=== PATIENT | female | born 1940 | race American Indian/Alaskan Native ===

== ENCOUNTER 2019-06-18 11:34 | Observation (INO) | payer MEDICARE ==
[2019-06-18 12:38] LABS: Basophils % (Auto) 0.9 % (0.0-1.8); Eosinophils # (Auto) 0.1 K/mm3 (0.0-0.4); Eosinophils % (Auto) 2.7 % (0.0-4.3); Hematocrit 41.4 % (30.3-42.9); Hemoglobin 13.5 gm/dl (10.1-14.3); Lymphocytes # (Auto) 1.3 K/mm3 (1.2-5.4); Lymphocytes % (Auto) 23.7 % (13.4-35.0); Mean Corpuscular HGB Conc 33 % (30-34); Mean Corpuscular Volume 87 fl (79-97); Monocytes # (Auto) 0.5 K/mm3 (0.0-0.8); Monocytes % (Auto) 10.2 % (0.0-7.3); Platelet Count 237 K/mm3 (140-440); Red Blood Count 4.74 M/mm3 (3.65-5.03); Red Cell Distribution Width 12.5 % (13.2-15.2)
--- NOTE | 2019-06-18 13:09 | Emergency Department Report ---
ED General Adult HPI - General Chief complaint: Syncope Stated complaint: SYNCOPE Time Seen by Provider: 06/18/19 13:05 Source: patient, EMS Mode of arrival: Stretcher Limitations: Altered Mental Status - History of Present Illness Initial comments: This is a 78-year-old female who does not recall at least 2 syncopal episodes as per the daughter's account to the nurse. The nurse tells me that the patient was observed by her daughter to pass out briefly a few times while they were in the car. The daughter is not here at the current time and no further information is available. The patient remembers being weak and sweaty but otherwise feels like she is back to her baseline. She states that she's had a cough lately and felt like she had a cold but no shortness of breath. She denies any recent travel any leg pain or swelling. She's had no chest pain no abdominal pain no nausea vomiting or diarrhea. -: minutes(s) Associated Symptoms: denies other symptoms, cough (occasional felt like she had a cold) - Related Data Home Medications Medication Instructions Recorded Confirmed Last Taken Aspirin [Aspirin BABY CHEW TAB] 81 mg PO QDAY 06/18/19 06/18/19 06/17/19 Carvedilol [Coreg] 12.5 mg PO BID 06/18/19 06/18/19 06/17/19 Simvastatin 40 mg PO QHS 06/18/19 06/18/19 06/17/19 Allergies Allergy/AdvReac Type Severity Reaction Status Date / Time No Known Allergies Allergy Unverified 06/18/19 12:15 ED Review of Systems ROS: Stated complaint: SYNCOPE Other details as noted in HPI Constitutional: denies: chills, fever Eyes: denies: eye pain, eye discharge, vision change ENT: denies: ear pain, throat pain Respiratory: cough (not currently, recent cold symptoms). denies: shortness of breath, wheezing Cardiovascular: denies: chest pain, palpitations Endocrine: no symptoms reported Gastrointestinal: denies: abdominal pain, nausea, diarrhea Genitourinary: denies: urgency, dysuria, discharge Musculoskeletal: denies: back pain, joint swelling, arthralgia Skin: denies: rash, lesions Neurological: denies: headache, weakness, paresthesias Psychiatric: denies: anxiety, depression Hematological/Lymphatic: denies: easy bleeding, easy bruising ED Past Medical Hx - Past Medical History Previous Medical History?: Yes Hx Hypertension: Yes Hx Heart Attack/AMI: Yes - Surgical History Past Surgical History?: Yes Additional Surgical History: heart stents - Social History Smoking Status: Former Smoker Substance Use Type: None - Medications Home Medications: Home Medications Medication Instructions Recorded Confirmed Last Taken Type Aspirin [Aspirin BABY CHEW TAB] 81 mg PO QDAY 06/18/19 06/18/19 06/17/19 History Carvedilol [Coreg] 12.5 mg PO BID 06/18/19 06/18/19 06/17/19 History Simvastatin 40 mg PO QHS 06/18/19 06/18/19 06/17/19 History ED Physical Exam - General Limitations: No Limitations General appearance: alert, in no apparent distress - Head Head exam: Present: atraumatic, normocephalic - Eye Eye exam: Present: normal appearance. Absent: scleral icterus - ENT ENT exam: Present: mucous membranes moist - Neck Neck exam: Present: normal inspection. Absent: tenderness, meningismus - Respiratory Respiratory exam: Present: normal lung sounds bilaterally. Absent: respiratory distress - Cardiovascular Cardiovascular Exam: Present: regular rate, normal rhythm. Absent: systolic murmur, diastolic murmur, rubs, gallop - GI/Abdominal GI/Abdominal exam: Present: soft, normal bowel sounds. Absent: distended, tenderness, guarding, rebound, rigid - Extremities Exam Extremities exam: Present: normal inspection. Absent: normal capillary refill, pedal edema, joint swelling, calf tenderness - Back Exam Back exam: Present: normal inspection - Neurological Exam Neurological exam: Present: alert, oriented X3, CN II-XII intact. Absent: motor sensory deficit - Psychiatric Psychiatric exam: Present: normal affect, normal mood - Skin Skin exam: Present: warm, dry, intact, normal color. Absent: rash ED Course Vital Signs 06/18/19 06/18/19 12:03 13:27 Temperature 97.8 F Pulse Rate 65 69 Respiratory 17 16 Rate Blood Pressure 148/65 Blood Pressure 120/57 [Left] O2 Sat by Pulse 97 96 Oximetry - Reevaluation(s) Reevaluation #1: Patient resting comfortably. I will add a CT to her workup of her head. She has an NIHSS of 0. Stroke is not suspected. 06/18/19 17:00 ED Medical Decision Making - Lab Data Result diagrams: 06/18/19 12:24 06/18/19 12:24 Laboratory Results - last 24 hr 06/18/19 06/18/19 11:54 12:24 WBC 5.4 RBC 4.74 Hgb 13.5 Hct 41.4 MCV 87 MCH 28 MCHC 33 RDW 12.5 L Plt Count 237 Lymph % (Auto) 23.7 [place] % (Auto) 10.2 H Eos % (Auto) 2.7 Baso % (Auto) 0.9 Lymph # 1.3 [place] # 0.5 Eos # 0.1 Baso # 0.0 Seg Neutrophils % 62.5 Seg Neutrophils # 3.4 POC Glucose 136 H Laboratory Results - last 24 hr 06/18/19 06/18/19 06/18/19 11:54 12:24 12:24 WBC 5.4 RBC 4.74 Hgb 13.5 Hct 41.4 MCV 87 MCH 28 MCHC 33 RDW 12.5 L Plt Count 237 Lymph % (Auto) 23.7 [place] % (Auto) 10.2 H Eos % (Auto) 2.7 Baso % (Auto) 0.9 Lymph # 1.3 [place] # 0.5 Eos # 0.1 Baso # 0.0 Seg Neutrophils % 62.5 Seg Neutrophils # 3.4 Sodium 141 Potassium 4.8 Chloride 103.5 Carbon Dioxide 25 Anion Gap 17 BUN 11 Creatinine 0.8 Estimated GFR > 60 BUN/Creatinine Ratio 14 Glucose 133 H POC Glucose 136 H Calcium 9.2 Total Bilirubin 0.60 AST 21 ALT 16 Alkaline Phosphatase 53 Total Creatine Kinase 44 CK-MB (CK-2) 1.6 CK-MB (CK-2) Rel Index 3.6 Troponin T < 0.010 Total Protein 7.0 Albumin 3.8 L Albumin/Globulin Ratio 1.2 Laboratory Results - last 24 hr 06/18/19 06/18/19 06/18/19 11:54 12:24 12:24 WBC 5.4 RBC 4.74 Hgb 13.5 Hct 41.4 MCV 87 MCH 28 MCHC 33 RDW 12.5 L Plt Count 237 Lymph % (Auto) 23.7 [place] % (Auto) 10.2 H Eos % (Auto) 2.7 Baso % (Auto) 0.9 Lymph # 1.3 [place] # 0.5 Eos # 0.1 Baso # 0.0 Seg Neutrophils % 62.5 Seg Neutrophils # 3.4 Sodium 141 Potassium 4.8 Chloride 103.5 Carbon Dioxide 25 Anion Gap 17 BUN 11 Creatinine 0.8 Estimated GFR > 60 BUN/Creatinine Ratio 14 Glucose 133 H POC Glucose 136 H Calcium 9.2 Total Bilirubin 0.60 AST 21 ALT 16 Alkaline Phosphatase 53 Total Creatine Kinase 44 CK-MB (CK-2) 1.6 CK-MB (CK-2) Rel Index 3.6 Troponin T < 0.010 Total Protein 7.0 Albumin 3.8 L Albumin/Globulin Ratio 1.2 - EKG Data -: EKG Interpreted by Wy EKG shows normal: sinus rhythm Rate: normal - EKG Data Interpretation: other (biatrial abnormality) - Radiology Data Radiology results: report reviewed (chest x-ray no acute process) Critical care attestation.: If time is entered above; I have spent that time in minutes in the direct care of this critically ill patient, excluding procedure time. ED Disposition Clinical Impression: Syncope Qualifiers: Syncope type: unspecified Qualified Code(s): R55 - Syncope and collapse Disposition: OP ADMIT IP TO THIS HOSP Is pt being admited?: Yes Does the pt Need Aspirin: Yes Condition: Stable Instructions: Syncope (ED) Time of Disposition: 17:02
--- NOTE | 2019-06-18 13:19 | XRay Report ---
CHEST 1 VIEW 12:46 PM INDICATION / CLINICAL INFORMATION: Syncope. COMPARISON: None available. FINDINGS: SUPPORT DEVICES: None. HEART / MEDIASTINUM: The heart size is borderline with a left ventricular configuration. There is mil d calcification in the aortic arch without aneurysm. Pulmonary vasculature is normal. LUNGS / PLEURA: No significant pulmonary or pleural abnormality. No pneumothorax. ADDITIONAL FINDINGS: No significant additional findings. IMPRESSION: No acute findings. Signer Name: Maverick Davis MD Signed: 06/18/2019 1:14 PM Workstation Name: [id number]
[2019-06-18 14:42] LABS: Creatine Kinase MB 1.6 ng/mL (0.0-4.0)
[2019-06-18 14:44] LABS: Alanine Aminotransferase 16 units/L (7-56); Albumin 3.8 g/dL (3.9-5); BUN/Creatinine Ratio 14; Blood Urea Nitrogen 11 mg/dL (7-17); Calcium 9.2 mg/dL (8.4-10.2); Hemolysis Index 11
[2019-06-18] MEDS ORDERED: BABY ASPIRIN PO ONE (17:02)
--- NOTE | 2019-06-18 19:09 | Cat Scan Report ---
CT head/brain wo con INDICATION: syncope. TECHNIQUE: Routine CT head without contrast. Sagittal and coronal reformatted images were obtained. A ll CT scans at this location are performed using CT dose reduction for ALARA by means of automated ex posure control. COMPARISON: None. FINDINGS: BRAIN / INTRACRANIAL CONTENTS: No acute hemorrhage, mass effect, midline shift, hydrocephalus, or acu te, large territorial infarct. No chronic infarct or focal atrophy with volume loss is seen in the le ft temporal lobe, left entorhinal cortex in the left hippocampus.. Periventricular low density areas are seen due to microvascular faint angiopathy. CRANIOCERVICAL JUNCTION: No significant abnormality. ORBITS: No significant abnormality of visualized orbits. SINUSES / MASTOIDS: No significant abnormality of the visualized paranasal sinuses or mastoid air tariq ls. ADDITIONAL FINDINGS: None. IMPRESSION: I do not see an acute parenchymal lesion Volume loss in the left temporal lobe, hippocampus (bilaterally) and left entorhinal cortex. Signer Name: Jeremiah Baig MD Signed: 06/18/2019 7:05 PM Workstation Name: [id number]
[2019-06-19] MEDS ORDERED: MORPHINE IV PRN (02:02)
[2019-06-19] MEDS ORDERED: PERCOCET 5/325 PO PRN (02:02)
[2019-06-19] MEDS ORDERED: TYLENOL PO PRN (02:02)
[2019-06-19] MEDS ORDERED: ZOFRAN IV PRN (02:02)
[2019-06-19] MEDS ORDERED: SODIUM CHLORIDE FLUSH SYRINGE 10 ML IV PRN (02:02)
--- NOTE | 2019-06-19 02:15 | Event Note ---
Date: 06/18/19 See H/p in reports Syncopex2 Htn HLD Lexiscan and CDS ordered
--- NOTE | 2019-06-19 02:43 | History and Physical Report ---
CHIEF COMPLAINT: Passed out x 2 over the last 24 hours. HISTORY OF PRESENT ILLNESS: A 78-year-old female with history of hypertension and hyperlipidemia, brought in by the daughter for passing out twice. Daughter observed that patient passed a couple of times also while she was in the car. The patient remembers being weak and sweaty. No chest pain. No shortness of breath. No cough or chills. No exacerbating or precipitating factors. She never passed out in the past. PAST MEDICAL HISTORY: Significant for hypertension, coronary artery disease. PAST SURGICAL HISTORY: Heart stents. SOCIAL HISTORY: Former smoker. FAMILY HISTORY: Hypertension. CURRENT MEDICATIONS: Coreg 12.5 b.i.d., simvastatin 40 mg p.o. at bedtime. REVIEW OF SYSTEMS: Significant for syncope x 2. No chest pain. Otherwise review of systems negative. A 14-point review of systems done. PHYSICAL EXAMINATION: GENERAL: Elderly female, cooperative during the examination. VITAL SIGNS: Blood pressure is 141/87, temperature is 97.5, pulse is 83, respirations are 18. HEENT: Unremarkable. Pupils equal and reactive. NECK: Supple. No lymphadenopathy, no thyromegaly. LUNGS: Clear to auscultation and percussion. Good air entry. CARDIOVASCULAR: S1, S2 heard. No gallop, no murmur, no rub. Apical impulse in left fifth intercostal space and midclavicular line. ABDOMEN: Soft and benign. No hepatosplenomegaly. No guarding, no rigidity. Hernial orifices are normal. EXTREMITIES: Good pedal pulses. No pedal edema. CENTRAL NERVOUS SYSTEM: Alert and oriented x 4, nonfocal exam. LABORATORY DATA AND IMAGING STUDIES: EKG normal sinus rhythm. No acute ST-T wave changes. Chest x-ray, no acute process. Labs are significant for white count of 5400, H and H is 13.5 and 41.4, platelet count is 237,000. Electrolytes are normal. Glucose slightly high 133. Albumin is 3.8. ASSESSMENT AND PLAN: 1. Syncope. Syncope workup. The patient to get Lexiscan and carotid duplex scan. Echocardiogram if necessary. 2. Hypertension. Continue antihypertensives. 3. Hyperlipidemia. Continue statins. 4. Deep venous thrombosis prophylaxis, Lovenox 40 mg subcutaneous daily. JOB# [id number] VSM/NTS MTDD
[2019-06-19] MEDS ORDERED: LOVENOX SUB-Q NR ×2 (04:00→05:30)
[2019-06-19] MEDS: BABY ASPIRIN PO SCH (12:01)
[2019-06-19] MEDS: PEPCID IV SCH ×2 (12:01→22:21)
[2019-06-19] MEDS: SODIUM CHLORIDE FLUSH SYRINGE 10 ML IV SCH ×2 (12:02→22:22)
[2019-06-19] MEDS: APRESOLINE IV PRN ×2 (12:26→18:41)
--- NOTE | 2019-06-19 12:44 | Vascular Lab Report ---
TECHNICAL DATA: Imaging was performed from the base of the neck to the skull base using duplex sonography and color-f low imaging with emphasis on the carotid and vertebral arterial systems. RIGHT CAROTID ARTERY: The right internal carotid artery, right external carotid, and right common carotid artery all well i junaid and patent. Mild atherosclerotic plaque present at the carotid bifurcation. Right common carotid artery peak systolic velocity 63 cm/sec Right internal carotid artery peak systolic velocity 92 cm/sec Right internal carotid artery end diastolic velocity 17 cm/sec Right internal carotid artery/right common carotid artery ratio .66 Vertebral artery flow is antegrade. LEFT CAROTID ARTERY The left internal carotid artery, left external carotid, and left common carotid artery all well imag ed and patent. Mild atherosclerotic plaque present at the carotid bifurcation. Left common carotid artery peak systolic velocity 53 cm/sec Left internal carotid artery peak systolic velocity 62 cm/sec Left internal carotid artery end diastolic velocity 22 cm/sec Left internal carotid artery/right common carotid artery ratio .80 Normal antegrade flow of the vertebral arteries. IMPRESSION: Sonographic NASCET Index This study proposed the incorporation of distal ICA flow velocity information on the conventional car otid Doppler study improving the diagnostic accuracy of PSV 1. 1. Internal carotid arteries demonstrate 16-49% stenosis: pansystolic spectral broadening with a PSV <125 cm/s1 2. Less than 50% stenosis common carotid arteries bilaterally 3. Normal external carotid arteries. 4. Antegrade flow both vertebral arteries. Sonographic NASCET Index This study proposed the incorporation of distal ICA flow velocity information on the conventional car otid Doppler study improving the diagnostic accuracy of PSV 1. * <15% stenosis: * deceleration spectral broadening with a peak systolic velocity (PSV) <125 cm/s * 16-49% stenosis: * pansystolic spectral broadening with a PSV <125 cm/s * 50-69% stenosis: * pansystolic spectral broadening with a PSV of >125 cm/s * and * end diastolic velocity (EDV) <110 cm/s or ICA/CCA PSV ratio >2 but <4 * 70-79% stenosis: * pansystolic spectral broadening with PSV >270 cm/s * or * EDV >110 cm/s * or * ICA/CCA PSV ratio >4 * 80-99% stenosis: EDV >140 cm/s * complete occlusion: no flow; terminal thump Signer Name: Aba Castillo MD Signed: 06/19/2019 12:40 PM Workstation Name: [id number]
--- NOTE | 2019-06-19 13:03 | Discharge Summary ---
Providers - Providers Date of Admission: 06/18/19 17:03 Attending physician: SANDY PIKE MD 06/19/19 09:05 Consult to Case Management [CONS] Routine Services Needed at Discharge: DME Equipment Notified:: copy given to CM Additional Physician Instructions: please arrange for EVENT MONITOR ON DISCHARGE Primary care physician: TICO BURR Hospitalization Condition: Stable Hospital course: The patient is a 78-year-old female with hx of HTN, CAD admitted following 2 syncopal episodes with the last resulting in brief memory lapase. The patient states that she remembers being weak and sweaty but otherwise feels like she is back to her baseline. She states that she's had a cough lately and felt like she had a cold but no shortness of breath. She denies any recent travel any leg pain or swelling. She's had no chest pain no abdominal pain no nausea vomiting or diarrhea. Syncope HTN Temporal Amnesia plan Continue supportive care Control BP Counselling provided on BP management Outpatient event monitor recommended on discharge and outpatient cardiology follow up Anticipate discharge if stress test is negative. DVT/GI prophy Disposition: DC-01 TO HOME OR SELFCARE Exam - Constitutional Vitals: Temp Pulse Resp BP Pulse Ox 98.4 F 88 18 188/97 96 06/19/19 11:45 06/19/19 12:26 06/19/19 11:45 06/19/19 12:26 06/19/19 11:45 Plan Activity: advance as tolerated, fall precautions Diet: low fat Special Instructions: record daily BP diary Follow up with: TICO BURR JR, MD [Primary Care Provider] - 7 Days ELENITA PERKINS MD [Staff Physician] - 7 Days YEHUDA SULLIVAN MD [Staff Physician] - 7 Days
[2019-06-19] MEDS: COREG PO SCH ×2 (14:31→22:21)
[2019-06-19] MEDS ORDERED: APRESOLINE IV PRN (20:55)
[2019-06-19] MEDS ORDERED: NON-FORMULARY (Simvastatin [Simvastatin] 40 MG) PO SCH (22:00)
[2019-06-19] MEDS: PRAVACHOL PO SCH (22:22)
--- NOTE | 2019-06-19 22:30 | Progress Note ---
Assessment and Plan Assessment and plan: The patient is a 78-year-old female with hx of HTN, CAD admitted following 2 syncopal episodes with the last resulting in brief memory lapase. The patient states that she remembers being weak and sweaty but otherwise feels like she is back to her baseline. She states that she's had a cough lately and felt like she had a cold but no shortness of breath. She denies any recent travel any leg pain or swelling. She's had no chest pain no abdominal pain no nausea vomiting or diarrhea. Syncope HTN Temporal Amnesia plan Continue supportive care Control BP Counselling provided on BP management Outpatient event monitor recommended on discharge and outpatient cardiology follow up Anticipate discharge if stress test is negative. DVT/GI prophy History Interval history: Patient seen and examined, reports improvement in chest pain. Denies any nausea, vomiting or diarrhea Hospitalist Physical - Constitutional Vitals: Temp Pulse Resp BP Pulse Ox 99.4 F 99 H 18 139/68 96 06/19/19 22:20 06/19/19 22:21 06/19/19 22:20 06/19/19 22:21 06/19/19 22:20 General appearance: Present: no acute distress, well-nourished - EENT Eyes: Present: PERRL ENT: hearing intact - Neck Neck: Present: supple, normal ROM - Respiratory Respiratory effort: normal Respiratory: bilateral: CTA - Cardiovascular Rhythm: regular Heart Sounds: Present: S1 & S2. Absent: systolic murmur - Extremities Extremities: no ischemia, pulses intact, pulses symmetrical, No edema, normal temperature, normal color, Full ROM Peripheral Pulses: within normal limits - Abdominal General gastrointestinal: soft, non-tender, non-distended, normal bowel sounds - Integumentary Integumentary: Present: clear, warm, dry - Psychiatric Psychiatric: appropriate mood/affect, intact judgment & insight, memory intact, cooperative - Neurologic Neurologic: CNII-XII intact, moves all extremities - Allied Health Allied health notes reviewed: nursing Results - Labs CBC & Chem 7: 06/18/19 12:24 06/18/19 12:24 Labs: Laboratory Last Values WBC 5.4 K/mm3 (4.5-11.0) 06/18/19 12:24 RBC 4.74 M/mm3 (3.65-5.03) 06/18/19 12:24 Hgb 13.5 gm/dl (10.1-14.3) 06/18/19 12:24 Hct 41.4 % (30.3-42.9) 06/18/19 12:24 MCV 87 fl (79-97) 06/18/19 12:24 MCH 28 pg (28-32) 06/18/19 12:24 MCHC 33 % (30-34) 06/18/19 12:24 RDW 12.5 % (13.2-15.2) L 06/18/19 12:24 Plt Count 237 K/mm3 (140-440) 06/18/19 12:24 Lymph % (Auto) 23.7 % (13.4-35.0) 06/18/19 12:24 [place] % (Auto) 10.2 % (0.0-7.3) H 06/18/19 12:24 Eos % (Auto) 2.7 % (0.0-4.3) 06/18/19 12:24 Baso % (Auto) 0.9 % (0.0-1.8) 06/18/19 12:24 Lymph # 1.3 K/mm3 (1.2-5.4) 06/18/19 12:24 [place] # 0.5 K/mm3 (0.0-0.8) 06/18/19 12:24 Eos # 0.1 K/mm3 (0.0-0.4) 06/18/19 12:24 Baso # 0.0 K/mm3 (0.0-0.1) 06/18/19 12:24 Seg Neutrophils % 62.5 % (40.0-70.0) 06/18/19 12:24 Seg Neutrophils # 3.4 K/mm3 (1.8-7.7) 06/18/19 12:24 Sodium 141 mmol/L (137-145) 06/18/19 12:24 Potassium 4.8 mmol/L (3.6-5.0) 06/18/19 12:24 Chloride 103.5 mmol/L (98-107) 06/18/19 12:24 Carbon Dioxide 25 mmol/L (22-30) 06/18/19 12:24 17 mmol/L 06/18/19 12:24 BUN 11 mg/dL (7-17) 06/18/19 12:24 0.8 mg/dL (0.7-1.2) 06/18/19 12:24 Estimated GFR > 60 ml/min 06/18/19 12:24 14 % 06/18/19 12:24 Glucose 133 mg/dL (65-100) H 06/18/19 12:24 POC Glucose 136 (70-105) H 06/18/19 11:54 5.0 % (4-6) 06/19/19 05:17 Calcium 9.2 mg/dL (8.4-10.2) 06/18/19 12:24 0.60 mg/dL (0.1-1.2) 06/18/19 12:24 AST 21 units/L (5-40) 06/18/19 12:24 ALT 16 units/L (7-56) 06/18/19 12:24 53 units/L (35-129) 06/18/19 12:24 44 units/L (30-135) 06/18/19 12:24 CK-MB (CK-2) 1.6 ng/mL (0.0-4.0) 06/18/19 12:24 CK-MB (CK-2) Rel Index 3.6 (0-4) 06/18/19 12:24 < 0.010 ng/mL (0.00-0.029) 06/18/19 12:24 7.0 g/dL (6.3-8.2) 06/18/19 12:24 3.8 g/dL (3.9-5) L 06/18/19 12:24 1.2 % 06/18/19 12:24 Active Medications - Current Medications Current Medications: Generic Name Dose Route Start Last Admin Trade Name Freq PRN Reason Stop Dose Admin Acetaminophen 650 mg 06/19/19 02:02 Tylenol PO Q4H PRN Pain MILD(1-3)/Fever >100.5/GARNER Aspirin 81 mg 06/19/19 10:00 06/19/19 12:01 Baby Aspirin PO 81 mg QDAY TIMOTEO Administration Carvedilol 12.5 mg 06/19/19 10:00 06/19/19 22:21 Coreg PO 12.5 mg BID TIMOTEO Administration Famotidine 20 mg 06/19/19 10:00 06/19/19 22:21 Pepcid IV 20 mg BID TIMOTEO Administration Hydralazine HCl 10 mg 06/19/19 20:55 Apresoline IV Q4H PRN Hypertension Morphine Sulfate 2 mg 06/19/19 02:02 Morphine IV Q4H PRN Pain, Moderate (4-6) Ondansetron HCl 4 mg 06/19/19 02:02 Zofran IV Q8H PRN Nausea And Vomiting Oxycodone/Acetaminophen 1 tab 06/19/19 02:02 Percocet 5/325 PO Q6H PRN Pain, Moderate (4-6) Pravastatin Sodium 80 mg 06/19/19 22:00 06/19/19 22:22 Pravachol PO 80 mg QHS TIMOTEO Administration Sodium Chloride 10 ml 06/19/19 10:00 06/19/19 22:22 Sodium Chloride Flush Syringe 10 Ml IV 10 ml BID TIMOTEO Administration Sodium Chloride 10 ml 06/19/19 02:02 Sodium Chloride Flush Syringe 10 Ml IV PRN PRN LINE FLUSH Nutrition/Malnutrition Assess - Dietary Evaluation Nutrition/Malnutrition Findings: Nutrition Notes Start: 06/19/19 15:30 Freq: Status: Active Protocol: Document 06/19/19 15:30 RM (Rec: 06/19/19 15:32 RM [id number]) Nutrition Notes Need for Assessment generated from: MST Initial or Follow up Brief Note Current Diagnosis Coronary Artery Disease, Hypertension,Hyperlipidemia Subjective/Other Information Screened for malnutrition. Procedure being done in pt room at time of visit. Nutrition Intervention Follow-Up By: 06/20/19 Additional Comments Follow for malnutriton assessment
[2019-06-20] MEDS ORDERED: LEXISCAN IV ONE ×2 (09:52→09:54)
[2019-06-20] MEDS: COREG PO SCH ×2 (12:31→21:41)
[2019-06-20] MEDS: BABY ASPIRIN PO SCH (12:31)
[2019-06-20] MEDS: SODIUM CHLORIDE FLUSH SYRINGE 10 ML IV SCH ×2 (12:31→21:41)
[2019-06-20] MEDS: PEPCID IV SCH ×2 (12:32→21:40)
--- NOTE | 2019-06-20 13:15 | Event Note ---
Date: 06/20/19 lexiscan stress: lvef 69%. 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
--- NOTE | 2019-06-20 20:56 | Progress Note ---
Assessment and Plan Assessment and plan: The patient is a 78-year-old female with hx of HTN, CAD admitted following 2 syncopal episodes with the last resulting in brief memory lapase. The patient states that she remembers being weak and sweaty but otherwise feels like she is back to her baseline. She states that she's had a cough lately and felt like she had a cold but no shortness of breath. She denies any recent travel any leg pain or swelling. She's had no chest pain no abdominal pain no nausea vomiting or diarrhea. Syncope HTN Temporal Amnesia CAD plan Continue supportive care Considering indications of prior ischemia, will obtain cardiology eval Control BP Counselling provided on BP management Outpatient event monitor recommended on discharge and outpatient cardiology follow up DVT/GI prophy History Interval history: Patient seen and examined, No further complaints of chest pain, still unable to give full data of the syncope. Denies any nausea, vomiting or diarrhea Hospitalist Physical - Physical exam Narrative exam: eneral appearance: Present: no acute distress, well-nourished - EENT Eyes: Present: PERRL ENT: hearing intact - Neck Neck: Present: supple, normal ROM - Respiratory Respiratory effort: normal Respiratory: bilateral: CTA - Cardiovascular Rhythm: regular Heart Sounds: Present: S1 & S2. Absent: systolic murmur - Extremities Extremities: no ischemia, pulses intact, pulses symmetrical, No edema, normal temperature, normal color, Full ROM Peripheral Pulses: within normal limits - Abdominal General gastrointestinal: soft, non-tender, non-distended, normal bowel sounds - Integumentary Integumentary: Present: clear, warm, dry - Psychiatric Psychiatric: appropriate mood/affect, intact judgment & insight, memory intact, cooperative - Neurologic Neurologic: CNII-XII intact, moves all extremities - Allied Health Allied health notes reviewed: nursing - Constitutional Vitals: Temp Pulse Resp BP Pulse Ox 98.5 F 72 18 152/54 96 06/20/19 17:12 06/20/19 17:12 06/20/19 17:12 06/20/19 17:12 06/20/19 17:12 General appearance: Present: no acute distress, well-nourished Results - Labs CBC & Chem 7: 06/18/19 12:24 06/18/19 12:24 Labs: Laboratory Last Values WBC 5.4 K/mm3 (4.5-11.0) 06/18/19 12:24 RBC 4.74 M/mm3 (3.65-5.03) 06/18/19 12:24 Hgb 13.5 gm/dl (10.1-14.3) 06/18/19 12:24 Hct 41.4 % (30.3-42.9) 06/18/19 12:24 MCV 87 fl (79-97) 06/18/19 12:24 MCH 28 pg (28-32) 06/18/19 12:24 MCHC 33 % (30-34) 06/18/19 12:24 RDW 12.5 % (13.2-15.2) L 06/18/19 12:24 Plt Count 237 K/mm3 (140-440) 06/18/19 12:24 Lymph % (Auto) 23.7 % (13.4-35.0) 06/18/19 12:24 [place] % (Auto) 10.2 % (0.0-7.3) H 06/18/19 12:24 Eos % (Auto) 2.7 % (0.0-4.3) 06/18/19 12:24 Baso % (Auto) 0.9 % (0.0-1.8) 06/18/19 12:24 Lymph # 1.3 K/mm3 (1.2-5.4) 06/18/19 12:24 [place] # 0.5 K/mm3 (0.0-0.8) 06/18/19 12:24 Eos # 0.1 K/mm3 (0.0-0.4) 06/18/19 12:24 Baso # 0.0 K/mm3 (0.0-0.1) 06/18/19 12:24 Seg Neutrophils % 62.5 % (40.0-70.0) 06/18/19 12:24 Seg Neutrophils # 3.4 K/mm3 (1.8-7.7) 06/18/19 12:24 Sodium 141 mmol/L (137-145) 06/18/19 12:24 Potassium 4.8 mmol/L (3.6-5.0) 06/18/19 12:24 Chloride 103.5 mmol/L (98-107) 06/18/19 12:24 Carbon Dioxide 25 mmol/L (22-30) 06/18/19 12:24 17 mmol/L 06/18/19 12:24 BUN 11 mg/dL (7-17) 06/18/19 12:24 0.8 mg/dL (0.7-1.2) 06/18/19 12:24 Estimated GFR > 60 ml/min 06/18/19 12:24 14 % 06/18/19 12:24 Glucose 133 mg/dL (65-100) H 06/18/19 12:24 POC Glucose 136 (70-105) H 06/18/19 11:54 5.0 % (4-6) 06/19/19 05:17 Calcium 9.2 mg/dL (8.4-10.2) 06/18/19 12:24 0.60 mg/dL (0.1-1.2) 06/18/19 12:24 AST 21 units/L (5-40) 06/18/19 12:24 ALT 16 units/L (7-56) 06/18/19 12:24 53 units/L (35-129) 06/18/19 12:24 44 units/L (30-135) 06/18/19 12:24 CK-MB (CK-2) 1.6 ng/mL (0.0-4.0) 06/18/19 12:24 CK-MB (CK-2) Rel Index 3.6 (0-4) 06/18/19 12:24 < 0.010 ng/mL (0.00-0.029) 06/18/19 12:24 7.0 g/dL (6.3-8.2) 06/18/19 12:24 3.8 g/dL (3.9-5) L 06/18/19 12:24 1.2 % 06/18/19 12:24 Active Medications - Current Medications Current Medications: Generic Name Dose Route Start Last Admin Trade Name Freq PRN Reason Stop Dose Admin Acetaminophen 650 mg 06/19/19 02:02 Tylenol PO Q4H PRN Pain MILD(1-3)/Fever >100.5/GARNER Aspirin 81 mg 06/19/19 10:00 06/20/19 12:31 Baby Aspirin PO 81 mg QDAY TIMOTEO Administration Carvedilol 12.5 mg 06/19/19 10:00 06/20/19 12:31 Coreg PO 12.5 mg BID TIMOTEO Administration Famotidine 20 mg 06/19/19 10:00 06/20/19 12:32 Pepcid IV 20 mg BID TIMOTEO Administration Hydralazine HCl 10 mg 06/19/19 20:55 Apresoline IV Q4H PRN Hypertension Morphine Sulfate 2 mg 06/19/19 02:02 Morphine IV Q4H PRN Pain, Moderate (4-6) Ondansetron HCl 4 mg 06/19/19 02:02 Zofran IV Q8H PRN Nausea And Vomiting Oxycodone/Acetaminophen 1 tab 06/19/19 02:02 Percocet 5/325 PO Q6H PRN Pain, Moderate (4-6) Pravastatin Sodium 80 mg 06/19/19 22:00 06/19/19 22:22 Pravachol PO 80 mg QHS TIMOTEO Administration Sodium Chloride 10 ml 06/19/19 10:00 06/20/19 12:31 Sodium Chloride Flush Syringe 10 Ml IV 10 ml BID TIMOTEO Administration Sodium Chloride 10 ml 06/19/19 02:02 Sodium Chloride Flush Syringe 10 Ml IV PRN PRN LINE FLUSH Nutrition/Malnutrition Assess - Dietary Evaluation Nutrition/Malnutrition Findings: Nutrition Notes Start: 06/19/19 15:30 Freq: Status: Active Protocol: Document 06/20/19 16:16 RM (Rec: 06/20/19 16:23 RM [id number]) Nutrition Notes Initial or Follow up Assessment Current Diagnosis Coronary Artery Disease, Hypertension,Hyperlipidemia Current Diet Cardiac Labs/Tests Reviewed Pertinent Medications Reviewed Height 5 ft Weight 55.7 kg Usual Body Weight 55.45 kg [place] Body Weight (kg) 45.45 BMI 24.0 Subjective/Other Information Pt stated that [employer] her appetite was "so so" and that she ate 2 meals daily. Stated that she ate all of her dinner last night. Noted breakfast at bedside w/none eaten. Stated UBW was 122-123 lbs 1 week ago. No temporal or orbital wasting . Burn Absent Trauma Absent #1 Nutrition Diagnosis Inadequate oral intake Etiology decreased appetite As Evidenced by Signs and Symptoms breakfast at bedside w/none eaten Is patient on ventilator? No Is Patient Ambulatory and/or Out of Bed Yes REE-([place] or-ambulatory/OOB) [ 1259.050 NUTR.[id number]] Calculation Used for Recommendations Lanre Lashay Additional Notes Protein Needs: 56-67g (1-1.2g/ kg) Fluid Needs: 1 ml/kcal Nutrition Intervention Change Diet Order: Continue current Add Supplement/Snack (indicate name/kcal Ensure Enlive Kegley 1 /protein ) daily Provides kCal: 350 Provides Protein (gm) 20 Goal #1 Meet at least 75% of calorie and protein needs via PO and ONS intakes Anticipated Discharge Needs: Cardiac diet Follow-Up By: 06/24/19 Additional Comments Follow for PO and ONS intakes
[2019-06-20] MEDS: PRAVACHOL PO SCH (21:40)
--- NOTE | 2019-06-20 22:50 | Treadmill Report ---
NUCLEAR CARDIAC IMAGING REPORT INDICATION FOR PROCEDURE: Chest pain. Informed consent was obtained. Vasodilator dilator stress was achieved with the intravenous administration of 0.4 mg of Lexiscan per protocol. Rest and stress nuclear cardiac imaging was performed following the intravenous administration of technetium-99m Myoview per protocol. Gated SPECT imaging demonstrates a post-stress left ventricular ejection fraction of 69%. There is reduced systolic thickening of the inferoseptal wall. Myocardial perfusion imaging demonstrates no significant cavity change between stress and rest. There is a medium sized moderately intense predominantly persistent, but partially reversible inferoseptal perfusion abnormality. Nuclear cardiac imaging demonstrates grossly normal left ventricular systolic function. There is evidence of prior inferoseptal wall myocardial necrosis with a mild degree of residual ischemia. A significant degree of ischemia does not appear to be present. [facility]# [id number] HIRAM/LLOYD
[2019-06-21] MEDS ORDERED: PEPCID PO SCH (10:00)
[2019-06-21] MEDS: COREG PO SCH (10:08)
[2019-06-21] MEDS: BABY ASPIRIN PO SCH (10:08)
[2019-06-21] MEDS: SODIUM CHLORIDE FLUSH SYRINGE 10 ML IV SCH (10:09)
--- NOTE | 2019-06-21 10:12 | Consultation ---
History of Present Illness Consult date: 06/21/19 Requesting physician: SANDY PIKE Consult reason: other (abnormal stress test) History of present illness: Ms. Espinoza is a 78 y/o female with a history of hypertension, [place] and CAD s/p PCI to RCA admitted after two reported syncopal episodes, one of which included a brief memory lapse. She is previously unknown to our practice. A head CT and carotid U/S were unremarkable. A nuclear stress test showed an EF of 69 percent with evidence of a prior infero-septal infarction with a residual degree of mild giacomo-infarction ischemia. On examination, she denies CP, shortness of breath and any syncopal episodes. Past History Past Medical History: CAD, hypertension, other ([place]) Medications and Allergies Allergies Allergy/AdvReac Type Severity Reaction Status Date / Time No Known Allergies Allergy Unverified 06/18/19 12:15 Home Medications Medication Instructions Recorded Confirmed Last Taken Type Aspirin [Aspirin BABY CHEW TAB] 81 mg PO QDAY 06/18/19 06/18/19 06/17/19 History Carvedilol [Coreg] 12.5 mg PO BID 06/18/19 06/18/19 06/17/19 History Simvastatin 40 mg PO QHS 06/18/19 06/18/19 06/17/19 History Active Meds: Active Medications Acetaminophen (Tylenol) 650 mg PO Q4H PRN PRN Reason: Pain MILD(1-3)/Fever >100.5/GARNER Aspirin (Baby Aspirin) 81 mg PO QDAY [facility] Last Admin: 06/21/19 10:08 Dose: 81 mg Documented by: Carvedilol (Coreg) 12.5 mg PO BID [facility] Last Admin: 06/21/19 10:08 Dose: 12.5 mg Documented by: Famotidine (Pepcid) 20 mg PO BID [facility] Last Admin: 06/21/19 10:08 Dose: 20 mg Documented by: Hydralazine HCl (Apresoline) 10 mg IV Q4H PRN PRN Reason: Hypertension Morphine Sulfate (Morphine) 2 mg IV Q4H PRN PRN Reason: Pain, Moderate (4-6) Ondansetron HCl (Zofran) 4 mg IV Q8H PRN PRN Reason: Nausea And Vomiting Oxycodone/Acetaminophen (Percocet 5/325) 1 tab PO Q6H PRN PRN Reason: Pain, Moderate (4-6) Pravastatin Sodium (Pravachol) 80 mg PO QHS [facility] Last Admin: 06/20/19 21:40 Dose: 80 mg Documented by: Sodium Chloride (Sodium Chloride Flush Syringe 10 Ml) 10 ml IV BID [facility] Last Admin: 06/21/19 10:09 Dose: 10 ml Documented by: Sodium Chloride (Sodium Chloride Flush Syringe 10 Ml) 10 ml IV PRN PRN PRN Reason: LINE FLUSH Review of Systems All systems: negative Physical Examination Last Vital Signs Temp 98.4 F 06/21/19 05:11 Pulse 72 06/21/19 05:11 Resp 18 06/21/19 05:11 BP 128/55 06/21/19 05:11 Pulse Ox 95 06/21/19 05:11 General appearance: no acute distress HEENT: Positive: PERRL Neck: Positive: neck supple Cardiac: Positive: Reg Rate and Rhythm Lungs: Positive: Normal Exam Neuro: Positive: Grossly Intact Abdomen: Positive: Unremarkable Female genitourinary: deferred Skin: Positive: Clear Extremities: Present: normal Results 06/18/19 12:24 06/18/19 12:24 - Imaging and Cardiology Stress echo: report reviewed (06/20/19: lexiscan stress: lvef 69%. evidence of prior infero-septal infarction with a residual degree of mild giacomo-infarction ischemia.) EKG interpretations - Telemetry EKG Rhythm: Sinus Rhythm Assessment and Plan Ms. Espinoza is a 78 y/o female with a history of a prior [place] and CAD s/p PCI to the RCA and hypertension. She is admitted after two reported syncopal episodes; however, on examination, she denies these episodes occurred. The abnormal nuclear scan is in the territory consistent with RCA disease, and this infarct does not appear recent. We recommend an event monitor and an EP consult as an outpatient. The patient was evaluated by Dr. Giron, who developed the assessment and plan. - Patient Problems (1) Syncope Current Visit: Yes Status: Acute Qualifiers: Syncope type: unspecified Qualified Code(s): R55 - Syncope and collapse (2) Abnormal stress test Current Visit: Yes Status: Acute (3) Hypertension Current Visit: Yes Status: Chronic (4) CAD (coronary artery disease) Current Visit: Yes Status: Chronic (5) Stented coronary artery Current Visit: Yes Status: Chronic (6) Myocardial infarction Current Visit: Yes Status: Resolved
--- NOTE | 2019-06-21 10:14 | Event Note ---
Date: 06/21/19 pt seen known cad. s/p pci rca. s/p mi several yr ago pt denies having passed out no cp or sob. no palp abn nuc scan is in the territory consistent with rca disease unclear if pt truly had a syncopal spell but the infarct does not appear to have been recent. would rec outpt event monitor and ep consult.
[2019-06-21 12:55] VITALS: BP 118/58
--- NOTE | 2019-06-21 14:07 | Discharge Summary ---
Providers - Providers Date of Admission: 06/18/19 17:03 Date of discharge: 06/21/19 Attending physician: GEORGIA LYNN 06/19/19 09:05 Consult to Case Management [CONS] Routine Services Needed at Discharge: DME Equipment Notified:: copy given to CM Additional Physician Instructions: please arrange for EVENT MONITOR ON DISCHARGE 06/20/19 19:30 Consult to Physician [CONS] Routine Comment: Consulting Provider: ELIZABETH DORAN Physician Instructions: Reason For Exam: abnormal stress test Primary care physician: TICO BURR Hospitalization Condition: Stable Pertinent studies: Patient is 72 years old with history of hypertension and myocardial infarction coronary artery disease status post PCI presented with 2 near syncope episodes. Patient at catheterization which showed ejection fraction of 69%. Old infarct. But this had nothing to do with the current event. Patient had only near syncope. Brought in workup negative unremarkable. Patient stable to be discharged with event monitor and EP as an outpatient. He feels good no dizziness stable ready for discharge. Disposition: - TO HOME OR SELFCARE - Discharge Diagnoses (1) Abnormal stress test Status: Acute Comment: A short abnormal stress test showed old infarct. Associated with syncope. (2) Syncope Status: Acute Qualifiers: Syncope type: unspecified Qualified Code(s): R55 - Syncope and collapse Comment: Agent without true syncope. Follow cardiology's other heart for event monitoring and EP testing. (3) CAD (coronary artery disease) Status: Chronic Comment: Patient remains chest pain-free no shortness of breath no degenerative exertion. Status post stable from CA past. (4) Hypertension Status: Chronic Comment: She has fair control of blood pressure continue beta lorna aggressive antilipid therapy. (5) Stented coronary artery Status: Chronic Core Measure Documentation - Palliative Care Palliative Care/ Comfort Measures: Not Applicable - Core Measures Any of the following diagnoses?: none Exam - Constitutional Vitals: Temp Pulse Resp BP Pulse Ox 97.7 F 71 14 118/58 98 06/21/19 11:49 06/21/19 11:49 06/21/19 11:49 06/21/19 11:49 06/21/19 11:49 General appearance: Present: no acute distress, well-nourished - EENT Eyes: Present: PERRL ENT: hearing intact, clear oral mucosa - Neck Neck: Present: supple, normal ROM - Respiratory Respiratory effort: normal Respiratory: bilateral: CTA - Cardiovascular Heart Sounds: Present: S1 & S2. Absent: rub, click - Extremities Extremities: pulses symmetrical, No edema Peripheral Pulses: within normal limits - Abdominal General gastrointestinal: Present: soft, non-tender, non-distended, normal bowel sounds Female genitourinary: Present: normal - Integumentary Integumentary: Present: clear, warm, dry - Musculoskeletal Musculoskeletal: gait normal, strength equal bilaterally - Psychiatric Psychiatric: appropriate mood/affect, intact judgment & insight - Neurologic Neurologic: CNII-XII intact, moves all extremities Plan Activity: advance as tolerated Weight Bearing Status: Weight Bear as Tolerated Diet: low cholesterol, low salt Follow up with: TICO BURR JR, MD [Primary Care Provider] - 7 Days YEHUDA SULLIVAN MD [Staff Physician] - 7 Days ELENITA PERKINS MD [Staff Physician] - 7 Days
== END 2019-06-21 14:39 | disposition home or self-care (01) ==
LOC: ED 11:34 → 3A 17:03
PROVIDERS: ADMIT Internal Medicine; ATTEND Internal Medicine
DX: R55 Syncope and collapse (principal); I10 Essential (primary) hypertension; I25.10 Atherosclerotic heart disease of native coronary artery without angina pectoris; E78.5 Hyperlipidemia, unspecified; Z87.891 Personal history of nicotine dependence
CPT/HCPCS: 36415; 70450; 71045; 78452; 80053; 82550; 82553; 82962; 83036; 84484; 85025; 93005; 93010; 93017; 93880; 96372; 96374; 96375; 96376; 99284; A9270; A9502; G0378; J0360; J1650; J2785